=== PATIENT | male | born 1945 | race Caucasian/White ===

== ENCOUNTER → 2018-04-23 07:02 | Outpatient (CLI) | payer OTHER, SELFPAY ==
[2018-04-23 09:51] LABS: Alanine Aminotransferase 29 IU/L (21-72); Albumin 4.2 g/dL (3.5-5.0); Albumin Globulin Ratio 1.4 (1.0-2.8); Alkaline Phosphatase 80 U/L (38-126); Aspartate Aminotransferase 20 IU/L (17-59); BUN Creatinine Ratio 18.9 (6-22); Bilirubin Total 1.1 mg/dL (0.2-1.3); Blood Urea Nitrogen 17 mg/dL (9-20); Calcium 9.3 mg/dL (8.4-10.2); Carbon Dioxide 26 mmol/L (22-32); Chloride 104 mmol/L (98-107); Cholesterol 125 mg/dL (140-199); Estimated Glomerular Filt Rate > 60.0 mL/min (>60); Globulin 2.9 g/dL (1.7-4.1); Glucose 95 mg/dL (80-110); HDL Cholesterol 40 mg/dL (40-60); HEMOLYSIS < 15 (0-50); LDL Cholesterol Calculated 59 mg/dL (<100); Sodium 139 mmol/L (137-145); Total Protein 7.1 g/dL (6.3-8.2); Triglycerides 128 mg/dL (35-150)
== END ==
PROVIDERS: Family Provider Family Medicine; PCP Family Medicine; Visit Provider Family Medicine
DX: E78.5 Hyperlipidemia, unspecified (principal); Z51.81 Encounter for therapeutic drug level monitoring
CPT/HCPCS: 36415; 80053; 80061

== ENCOUNTER → 2018-06-09 13:40 | Outpatient (CLI) | payer OTHER, SELFPAY ==
--- NOTE | 2018-06-09 13:43 | DI.RAD.S_ITS ---
PROCEDURE: XR KNEE RT 3V INDICATIONS: Rihght knee pain TECHNIQUE: 3 views of the knee were acquired. COMPARISON: None. FINDINGS: Bones: No fractures or dislocations. No suspicious bony lesions. Mild joint space narrowing of the medial femorotibial compartment. Soft tissues: No joint effusion. No suspicious soft tissue calcifications. There is a small linear foreign body projecting to the lateral aspect of the knee. IMPRESSION: 1. Mild oste arthritis. 2. A small linear foreign body in the lateral aspect of the knee joint. ? suture. Dictated by: Shelton Dye M.D. on 06/09/2018 at 17:35 Approved by: Shelton Dye M.D. on 06/09/2018 at 17:39
== END ==
PROVIDERS: PCP Family Medicine; Visit Provider Family Medicine
DX: M25.561 Pain in right knee (principal); M17.11 Unilateral primary osteoarthritis, right knee; M79.5 Residual foreign body in soft tissue
CPT/HCPCS: 73562

== ENCOUNTER → 2018-12-23 06:51 | Outpatient (CLI) | payer OTHER, SELFPAY ==
[2018-12-23 08:32] LABS: Alanine Aminotransferase 22 IU/L (21-72); Albumin 4.2 g/dL (3.5-5.0); Albumin Globulin Ratio 1.3 (1.0-2.8); Alkaline Phosphatase 93 U/L (38-126); Aspartate Aminotransferase 24 IU/L (17-59); BUN Creatinine Ratio 21.1 (6-22); Bilirubin Total 1.3 mg/dL (0.2-1.3); Blood Urea Nitrogen 19 mg/dL (9-20); Calcium 9.6 mg/dL (8.4-10.2); Carbon Dioxide 27 mmol/L (22-32); Chloride 104 mmol/L (98-107); Cholesterol 132 mg/dL (140-199); Estimated Glomerular Filt Rate > 60.0 mL/min (>60); Globulin 3.2 g/dL (1.7-4.1); Glucose 99 mg/dL (80-110); HDL Cholesterol 42 mg/dL (40-60); HEMOLYSIS < 15 (0-50); LDL Cholesterol Calculated 69 mg/dL (<100); Potassium 3.9 mmol/L (3.4-5.1); Sodium 139 mmol/L (137-145); Total Protein 7.4 g/dL (6.3-8.2); Triglycerides 107 mg/dL (35-150)
== END ==
PROVIDERS: PCP Family Medicine; Visit Provider Family Medicine
DX: E78.5 Hyperlipidemia, unspecified (principal); I10 Essential (primary) hypertension
CPT/HCPCS: 36415; 80053; 80061

== ENCOUNTER → 2019-02-03 06:48 | Outpatient (CLI) | payer OTHER, SELFPAY ==
[2019-02-03 08:37] LABS: Prostate Specific Antigen 0.283 ng/mL (0.10-4.00)
== END ==
PROVIDERS: Nurse Practitioner Family; PCP Family Medicine; Visit Provider Family Medicine
DX: Z85.46 Personal history of malignant neoplasm of prostate (principal)
CPT/HCPCS: 36415; 84153

== ENCOUNTER → 2019-03-11 07:29 | Outpatient (CLI) | payer OTHER, SELFPAY ==
--- NOTE | 2019-03-11 | DI.RAD.S_ITS ---
PROCEDURE: FL BARIUM SWALLOW INDICATIONS: Other dysphagia COMPARISON: None. FINDINGS: Function: There is markedly decreased esophageal peristalsis. Spontaneous gastroesophageal reflux was seen to the level of the lower third of the esophagus. Morphology: Air-contrast images demonstrate presumed diffuse reflux esophagitis, with occasional feline appearance Single contrast views show no esophageal strictures, extrinsic mass effects, or diverticula. There is a moderate-large hiatal hernia IMPRESSION: Moderate-large hiatal hernia Severe esophageal dysmotility Spontaneous gastroesophageal reflux Dictated by: Armand Awan M.D. on 03/11/2019 at 11:01 Approved by: Armand Awan M.D. on 03/11/2019 at 11:04
== END ==
PROVIDERS: PCP Family Medicine; Visit Provider Otolaryngology
DX: R13.19 Other dysphagia (principal); K44.9 Diaphragmatic hernia without obstruction or gangrene; K22.4 Dyskinesia of esophagus; K21.9 Gastro-esophageal reflux disease without esophagitis
CPT/HCPCS: 74220

== ENCOUNTER 2019-05-02 08:57 | Day surgery (SDC) | payer OTHER, SELFPAY ==
--- NOTE | 2019-05-02 | PATH_ITS ---
[facility] Accession Number: [id number] . 01 Material submitted: . PART A: esophagus, E-G Junction - GE JUNCTION BIOPSIES PART B: body - POLYP AT 80 CM . 02 Diagnosis: A. Gastroesophageal Junction, Biopsies: Squamous epithelium with no diagnostic abnormality. No glandular mucosa present for evaluation. Negative for dysplasia or malignancy. . B. Colon at 80 cm, Polyp: Tubular adenoma. MRV 05/03/2019 1241 Local . 02 Electronically signed: . Geoff Adams MD, PhD, Pathologist NPI- [id number] . 01 Gross description: . Part A: GE JUNCTION BIOPSIES: Received in formalin are 3 fragment(s) of peña, soft tissue measuring 0.1 x 0.1 x 0.1 cm to 0.3 x 0.2 x 0.2 cm submitted entirely in 1 cassette(s) Part B: POLYP AT 80 CM: Received in formalin are multiple fragment(s) of peña, soft tissue measuring 0.1 x 0.1 x 0.1 cm to 0.5 x 0.5 x 0.4 cm submitted entirely in 1 cassette(s) /[facility] 05/02/20192006 Local . 02 Pathologist provided ICD-10: K21.9, D12.6 . 02 CPT . 074692, [id number] Performed at: 01 [facility] [address], [place], [place] [id number] MD Satnam Maldonado MD Phone: [phone] Performed at: 02 [facility] [address] [place], [place] [id number] MD Jackelyn Ramirez MD Phone: [phone]
[2019-05-02] MEDS: SODIUM CHLORIDE 0.9% 1,000 ML 200 ML IV (09:12)
[2019-05-02 09:16] VITALS: BP 154/88; PULSE 67; RESP 16; TEMP 36.4; O2SAT 96; BMI 25.5
[2019-05-02 09:25] VITALS: BMI 25.5
--- NOTE | 2019-05-02 10:01 | PM.HP.1 ---
History of Present Illness History of Present Illness Date Patient Seen: 05/02/19 Time Patient Seen: 10:01 Chief complaint: [id number] Narrative: Patient presents for colorectal screening. They had a previous endoscopy 10 years ago which was normal. In addition to their colorectal screening they have a history of longstanding gastroesophageal reflux and recently became developed dysphagia with solid food products including bread and pasta. Feels as if the food is getting stuck in the midesophagus. No prior EGD No personal or family history of colon cancer. On further history denies any recent gastrointestinal symptoms. No nausea, vomiting, abdominal pain, loss of appetite, unexplained weight loss, change in bowel habits, diarrhea, constipation, melena, hematochezia, or bright red blood per rectum. 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) Mixed hyperlipidemia (Chronic 10/30/15) Surgical History History of tonsillectomy Status post hernia repair Family & Social History Family History Father Bladder cancer Skin cancer Social History: household members spouse Tobacco & Substance use: Smoking Status Never smoker alcohol intake never Meds Home Medications and Allergies Home Medications Medication Instructions Recorded Confirmed Type atorvastatin 20 mg tablet 20 mg PO HS #30 tab 01/14/19 05/02/19 Rx clopidogrel 75 mg tablet 75 mg PO DAILY #30 tab 01/14/19 05/02/19 Rx pantoprazole 40 mg tablet,delayed 40 mg PO QDAY #30 tab 01/14/19 05/02/19 Rx release tamsulosin 0.4 mg capsule 0.4 mg PO DAILY #30 cap 01/14/19 05/02/19 Rx lisinopril 10 mg tablet 10 mg PO DAILY #30 tab 04/29/19 05/02/19 Rx Allergies Allergy/AdvReac Type Severity Reaction Status Date / Time codeine [CODEINE] AdvReac Mild stomach Verified 05/02/19 09:01 pain Review of Systems Review of Systems Narrative: A 10 point review of systems is negative except as noted in the HPI Exam Vital Signs (past 8 hours): - 05/02/19 09:16 Temperature 97.5 F L Pulse Rate 67 Respiratory Rate 16 Blood Pressure 154/88 H Pulse Oximetry 96 Oxygen Delivery Method Room Air Narrative Exam Narrative: General-no acute distress, well nourished HEENT-moist mucous membranes, no scleral icterus Neck-supple, no lymphadenopathy Chest- non labored respirations, clear to auscultation bilaterally Cardiac-regular rate no peripheral edema Abdomen-soft, nontender, non distended Extremities-warm, well perfused Neurological-alert and oriented, no focal deficits Assessment & Plan Assessment and plan (1) Screening for colon cancer: Current visit: Yes Status: Acute Assessment & Plan narrative: The patient has longstanding gastroesophageal reflux and recent onset of dysphagia with solid food. Esophagoduodenoscopy is indicated with possible dilation. In addition The patient requires colorectal screening and colonoscopy is recommended. Technical details were discussed. Risks, benefits, alternatives explained. Risks including but not limited to myocardial infarction, aspiration, bleeding, pain, missed lesion, incomplete examination, need for further radiographic studies, colonic perforation, and need for major abdominal surgery were discussed. All questions were answered to their satisfaction, and they are in agreement with this plan.
--- NOTE | 2019-05-02 10:45 | PM.OP.ENDO ---
Operative Date/Time/Diagnoses Date of procedure: 05/02/19 Time of procedure: 10:45 Pre-op diagnosis: dysphagia Screening colonoscopy Post-op diagnosis: same Procedure & Clinicians Study performed: Esophagoduodenoscopy Colonoscopy Same procedure as scheduled: Yes Indications: Longstanding reflux new onset dysphagia last colonoscopy 10 years ago Surgeon: Raleigh Finley Procedure Notes SCOAP/Timeout: Performed Procedure in detail: Patient placed in left lateral decubitus position. Time out was performed. Procedural sedation was administered with Versed and Fentanyl. A bite block was placed. the scope was inserted into the mouth and advanced through the esophagus and into the stomach. The pylorus was intubated and the duodenum was normal. The scope was retroflexed within the stomach and there was a hiatal hernia. No ulcers, or gastritis. The scope was withdrawn into the esophagus the Z line was seen at 35 cm from the incisions. There was no campuzano's MILD esophagitis no masses or strictures. 4 random biopsies of the Z line were taken with forceps 35 cm. Stomach was desufflated and scope removed. Patient tolerated procedure well. Patient placed in left lateral decubitus position. Time out was performed. Procedural sedation was administered with Versed and Fentanyl. A rectal exam demonstrated no external hemorrhoids no internal masses. Colonoscopy scope was placed into the rectum and advanced through the colon to the cecum. The ileocecal valve was identified. The scope was then slowly withdrawn examining colon thoroughly in all directions. The colonoscopy was notable for the following 1. Transverse colon Adenomatous appearing polyp less than 1 cm removed with forceps biopsy hemostatic cauterized 2. Pain diverticulosis 3. Quality of prep fair Scope withdrawal time: 15 Sedation minutes: 40 Findings: hiatal hernia, polyp and other findings (Esophagitis) Specimen(s): other Complications: none Impression: Esophagitis Hiatal hernia Adenomatous polyp Post-procedure Recommendations: Colonscopy in 5 years Disposition: same day surgery
[2019-05-02 10:48] VITALS: BP 147/86; PULSE 68; RESP 14; TEMP 36.1; O2SAT 95
[2019-05-02] MEDS: LIDOCAINE 4% SOLN 50 ML 20 ML TOP (10:48)
[2019-05-02] MEDS: fentaNYL 250 MCG/5 ML INJ IV (10:49)
[2019-05-02] MEDS: MIDAZOLAM 5 MG/5 ML VIAL IV (10:49)
[2019-05-02 10:53] VITALS: BP 138/82; PULSE 64; RESP 14; O2SAT 95
[2019-05-02 10:58] VITALS: BP 136/81; PULSE 67; RESP 12; O2SAT 96
[2019-05-02 11:15] VITALS: BP 131/87; PULSE 56; RESP 20; TEMP 36.5; O2SAT 96
== END 2019-05-02 11:47 | disposition home or self-care (01) ==
PROVIDERS: PCP Internal Medicine; Referring Provider Internal Medicine; Visit Provider Surgery
PROC: 0DJD8ZZ Inspection of Lower Intestinal Tract, Via Natural or Artificial Opening Endoscopic (ICD-10-PCS; CPT 45378; principal; 2019-05-02 10:00)
PROC: 0DJ08ZZ Inspection of Upper Intestinal Tract, Via Natural or Artificial Opening Endoscopic (ICD-10-PCS; CPT 43235; 2019-05-02 10:00)
DX: Z12.11 Encounter for screening for malignant neoplasm of colon (principal); R13.10 Dysphagia, unspecified; K44.9 Diaphragmatic hernia without obstruction or gangrene; K57.30 Diverticulosis of large intestine without perforation or abscess without bleeding; D12.6 Benign neoplasm of colon, unspecified
CPT/HCPCS: 45380; 43239; 99152; 99153; J2250; J3010

== ENCOUNTER → 2019-06-06 06:46 | Outpatient (CLI) | payer OTHER, SELFPAY ==
[2019-06-06 07:46] LABS: Alanine Aminotransferase 18 IU/L (<50); Albumin 4.2 g/dL (3.5-5.0); Albumin Globulin Ratio 1.2 (1.0-2.8); Alkaline Phosphatase 89 U/L (38-126); Aspartate Aminotransferase 22 IU/L (17-59); BUN Creatinine Ratio 20.4 (6-22); Bilirubin Total 0.9 mg/dL (0.2-1.3); Blood Urea Nitrogen 21 mg/dL (9-20); Calcium 9.5 mg/dL (8.4-10.2); Carbon Dioxide 29 mmol/L (22-32); Chloride 104 mmol/L (98-107); Cholesterol 145 mg/dL (140-199); Estimated Glomerular Filt Rate > 60.0 mL/min (>60); Globulin 3.4 g/dL (1.7-4.1); Glucose 108 mg/dL (80-110); HDL Cholesterol 42 mg/dL (40-60); HEMOLYSIS < 15 (0-50); LDL Cholesterol Calculated 71 mg/dL (<100); Potassium 4.1 mmol/L (3.4-5.1); Sodium 140 mmol/L (137-145); Total Protein 7.6 g/dL (6.3-8.2); Triglycerides 158 mg/dL (35-150)
[2019-06-06 08:15] LABS: Prostate Specific Antigen 0.603 ng/mL (0.10-4.00)
== END ==
PROVIDERS: PCP Internal Medicine; Referring Provider Internal Medicine; Visit Provider Internal Medicine
DX: E78.2 Mixed hyperlipidemia (principal); I10 Essential (primary) hypertension; I25.10 Atherosclerotic heart disease of native coronary artery without angina pectoris; Z85.46 Personal history of malignant neoplasm of prostate
CPT/HCPCS: 36415; 80053; 80061; 84153

== ENCOUNTER → 2019-12-27 06:56 | Outpatient (CLI) | payer OTHER, SELFPAY ==
[2019-12-27 09:20] LABS: Alanine Aminotransferase 20 IU/L (<50); Albumin Globulin Ratio 1.4 (1.0-2.8); Alkaline Phosphatase 81 U/L (38-126); Aspartate Aminotransferase 26 IU/L (17-59); BUN Creatinine Ratio 26.3 (6-22); Bilirubin Total 0.7 mg/dL (0.2-1.3); Blood Urea Nitrogen 25 mg/dL (9-20); Calcium 9.4 mg/dL (8.4-10.2); Carbon Dioxide 31 mmol/L (22-32); Chloride 104 mmol/L (98-107); Cholesterol 130 mg/dL (140-199); Estimated Glomerular Filt Rate > 60.0 mL/min (>60); Globulin 2.9 g/dL (1.7-4.1); Glucose 99 mg/dL (80-110); HDL Cholesterol 44 mg/dL (40-60); HEMOLYSIS < 15 (0-50); LDL Cholesterol Calculated 69 mg/dL (<100); Potassium 4.3 mmol/L (3.4-5.1); Sodium 141 mmol/L (137-145); Total Protein 6.9 g/dL (6.3-8.2); Triglycerides 86 mg/dL (35-150)
[2019-12-27 09:51] LABS: Prostate Specific Antigen 2.37 ng/mL (0.10-4.00)
== END ==
PROVIDERS: PCP Internal Medicine; Referring Provider Internal Medicine; Visit Provider Internal Medicine
DX: E78.2 Mixed hyperlipidemia (principal); I10 Essential (primary) hypertension; I25.10 Atherosclerotic heart disease of native coronary artery without angina pectoris; Z85.46 Personal history of malignant neoplasm of prostate
CPT/HCPCS: 36415; 80053; 80061; 84153

== ENCOUNTER → 2020-03-28 07:01 | Outpatient (CLI) | payer OTHER, SELFPAY ==
[2020-03-28 09:14] LABS: Prostate Specific Antigen 4.57 ng/mL (0.10-4.00)
== END ==
PROVIDERS: PCP Internal Medicine; Referring Provider Internal Medicine; Visit Provider Internal Medicine
DX: Z85.46 Personal history of malignant neoplasm of prostate (principal)
CPT/HCPCS: 36415; 84153

== ENCOUNTER → 2020-04-02 10:52 | Outpatient (CLI) | payer OTHER, SELFPAY ==
--- NOTE | 2020-04-02 10:53 | DI.RAD.S_ITS ---
PROCEDURE: XR SHOULDER LT MIN 2V INDICATIONS: left shoulder pain TECHNIQUE: 3 views of the shoulder were acquired. COMPARISON: [facility], SHOULDER MINIMUM 2 VIEW LEFT, 02/22/2010, 7:51. [facility], SHOULDER MINIMUM 2VIEW RIGHT, 07/06/2007, 16:12. FINDINGS: Bones: No fractures or dislocations. No suspicious bony lesions. Visualized ribs appear intact. Soft tissues: No suspicious soft tissue calcifications. IMPRESSION: [id number] AC joint osteoarthritis but no recent or chronic trauma found. No loose body identified. Dictated by: Bakari Tamez M.D. on 04/02/2020 at 11:59 Approved by: Bakari Tamez M.D. on 04/02/2020 at 12:00
== END ==
PROVIDERS: PCP Internal Medicine; Referring Provider Internal Medicine; Visit Provider Internal Medicine
DX: M25.512 Pain in left shoulder (principal); M19.012 Primary osteoarthritis, left shoulder
CPT/HCPCS: 73030

== ENCOUNTER → 2020-06-12 06:47 | Outpatient (CLI) | payer OTHER, SELFPAY ==
[2020-06-12 09:11] LABS: BUN Creatinine Ratio 18.6 (6-22); Blood Urea Nitrogen 18 mg/dL (9-20); Calcium 9.6 mg/dL (8.4-10.2); Carbon Dioxide 28 mmol/L (22-32); Chloride 104 mmol/L (98-107); Estimated Glomerular Filt Rate > 60.0 mL/min (>60); Glucose 101 mg/dL (80-110); HEMOLYSIS < 15 (0-50); Potassium 4.6 mmol/L (3.4-5.1); Sodium 138 mmol/L (137-145)
[2020-06-12 09:34] LABS: Prostate Specific Antigen 7.24 ng/mL (0.10-4.00)
== END ==
PROVIDERS: PCP Internal Medicine; Referring Provider Specialist; Visit Provider Specialist
DX: R94.4 Abnormal results of kidney function studies (principal); R97.20 Elevated prostate specific antigen [PSA]
CPT/HCPCS: 36415; 80048; 84153

== ENCOUNTER → 2020-06-14 10:41 | Outpatient (CLI) | payer OTHER, SELFPAY ==
--- NOTE | 2020-06-14 10:42 | DI.NM.S_ITS ---
PROCEDURE: NM BONE SCAN WHOLE BODY RADIOPHARMACEUTICAL: 19.5 mCi Tc-99m MDP IV. INDICATIONS: Prostate cancer TECHNIQUE: Delayed whole-body scintigrams were obtained approximately 3-4 hours after intravenous injection of radiotracer. Anterior and posterior views were acquired from vertex to feet. Additional left and right oblique views of the pelvis were obtained. COMPARISON: [facility], CT, CT CHEST ABD PEL W CON, 06/14/2020, 11:35. FINDINGS: There is physiologic tracer activity seen within the kidneys and bladder. Bilateral knee periarticular uptake as well as at the left great toe is probably degenerative/arthritic in nature. There is also L5-S1 tracer activity which is probably discogenic given the CT appearance. No definite tracer activity corresponding to the sclerotic lesion seen on the comparison CT dated same day although recommend continued surveillance of this area on subsequent studies. Cervical tracer activity is likely discogenic. IMPRESSION: Overall, no suspicious tracer activity identified including in the area of the anterior right 4th rib. Dictated by: Armand Awan M.D. on 06/14/2020 at 15:40 Approved by: Armand Awan M.D. on 06/14/2020 at 15:46
--- NOTE | 2020-06-14 10:42 | DI.CT.S_ITS ---
PROCEDURE: CT CHEST ABD PEL W CON INDICATIONS: Rising PSA, Personal history of prostate cancer TECHNIQUE: After the administration of oral and intravenous contrast, 5 mm thick sections acquired from the lung apices to the symphysis. 5 mm coronal and sagittal reformats were performed, with additional 7 mm coronal MIP reformats through the lungs. For radiation dose reduction, the following was used: automated exposure control, adjustment of mA and/or kV according to patient size. COMPARISON: [facility], CT, PELVIS W/O CONTRAST, 06/06/2013, 11:21. FINDINGS: Image quality: Excellent. CHEST: Scattered subsegmental atelectasis and/or scarring. No focal consolidation. No pleural effusions or pneumothorax. Central and peripheral airways appear patent and normal in caliber. Subcentimeter right anterior pleural calcification, technically nonspecific although recommend attention to this area on pending Mediastinum: Heart size is normal. No pericardial effusion. No mediastinal or hilar adenopathy by size criteria. Thoracic aorta and central pulmonary arteries are normal in size. Esophagus is normal in caliber. Large hiatal hernia Chest wall: No axillary or supraclavicular adenopathy by size criteria. Thyroid is grossly unremarkable ABDOMEN: Solid organs: Liver is normal in size and enhancement. GallbladderThe gallbladder is grossly unremarkable.. Biliary system is non dilated. Pancreas enhances normally. Spleen is normal in size and enhancement. No adrenal nodules. Kidneys demonstrate normal size and enhancement, without hydronephrosis. Peritoneum and bowel: Bowel loops demonstrate normal wall thickness and caliber. No free fluid or air. Colonic diverticulosis is seen without evidence of acute complication. Nodes and vessels: No retroperitoneal or mesenteric adenopathy by size criteria. Aorta and inferior vena cava are normal in size. Miscellaneous: No ventral hernias. PELVIS: Genitourinary: Bladder wall thickness is normal. Prostate brachytherapy seeds noted. There is interval development of enlarged left external iliac, retroperitoneal lymph nodes, for example image 100/2 left external iliac lymph node measures 1.3 x 1.3 cm. On image 92/2, 2.8 x 1.8 cm left common iliac lymph node. There are additional shotty subcentimeter retroperitoneal lymph nodes without definite pathologic enlargement, although these appear more conspicuous since the prior study. Fat containing left inguinal hernia. Bones: No suspicious bony lesions. No vertebral body compression fractures. IMPRESSION: Interval development of left common iliac, and left external iliac enlarged lymph nodes suggesting metastatic involvement. Additional shotty retroperitoneal lymph nodes which warrant continued observation, given suspicion of early disease. Nonspecific subcentimeter sclerotic focus involving the anterior right 4th rib/pleura, raising the possibility of osseous metastasis. Recommend correlation to this area on pending bone scan. Large hiatal hernia Additional chronic and incidental findings as above. Dictated by: Armand Awan M.D. on 06/14/2020 at 14:58 Approved by: Armand Awan M.D. on 06/14/2020 at 15:13
== END ==
PROVIDERS: PCP Internal Medicine; Referring Provider Internal Medicine; Visit Provider Specialist
DX: C61 Malignant neoplasm of prostate (principal); R97.20 Elevated prostate specific antigen [PSA]; R59.0 Localized enlarged lymph nodes; K44.9 Diaphragmatic hernia without obstruction or gangrene
CPT/HCPCS: 71260; 74177; 78306; A9503; Q9967

== ENCOUNTER → 2020-11-14 06:54 | Outpatient (CLI) | payer OTHER, SELFPAY ==
[2020-11-14 08:55] LABS: Prostate Specific Antigen 0.177 ng/mL (0.10-4.00)
== END ==
PROVIDERS: PCP Internal Medicine; Referring Provider Specialist; Visit Provider Specialist
DX: N40.0 Benign prostatic hyperplasia without lower urinary tract symptoms (principal)
CPT/HCPCS: 36415; 84153

== ENCOUNTER → 2021-04-30 06:49 | Outpatient (CLI) | payer OTHER, SELFPAY ==
[2021-04-30 09:08] LABS: Prostate Specific Antigen < 0.064 ng/mL (0.10-4.00)
== END ==
PROVIDERS: PCP Internal Medicine; Referring Provider Specialist; Visit Provider Specialist
DX: C61 Malignant neoplasm of prostate (principal)
CPT/HCPCS: 36415; 84153

== ENCOUNTER → 2021-05-01 14:01 | Outpatient (CLI) | payer OTHER, SELFPAY | PROVIDERS: PCP Internal Medicine; Referring Provider Specialist; Visit Provider Specialist | DX: C79.9 Secondary malignant neoplasm of unspecified site; C61 Malignant neoplasm of prostate; M85.851 Other specified disorders of bone density and structure, right thigh; M19.90 Unspecified osteoarthritis, unspecified site; Z79.899 Other long term (current) drug therapy; Z79.818 Long term (current) use of other agents affecting estrogen receptors and estrogen levels | CPT/HCPCS: 77080 ==

== ENCOUNTER → 2021-07-01 06:52 | Outpatient (CLI) | payer OTHER, SELFPAY ==
[2021-07-01 08:53] LABS: Alanine Aminotransferase 16 IU/L (<50); Albumin Globulin Ratio 1.4 (1.0-2.8); Alkaline Phosphatase 57 U/L (38-126); Aspartate Aminotransferase 22 IU/L (17-59); BUN Creatinine Ratio 19.6 (6-22); Bilirubin Total 0.7 mg/dL (0.2-1.3); Blood Urea Nitrogen 18 mg/dL (9-20); Calcium 8.8 mg/dL (8.4-10.2); Carbon Dioxide 27 mmol/L (22-32); Chloride 107 mmol/L (98-107); Cholesterol 160 mg/dL (140-199); Estimated Glomerular Filt Rate > 60.0 mL/min (>60); Globulin 2.8 g/dL (1.7-4.1); Glucose 107 mg/dL (80-110); HDL Cholesterol 52 mg/dL (40-60); HEMOLYSIS < 15 (0-50); LDL Cholesterol Calculated 67 mg/dL (<100); Sodium 141 mmol/L (137-145); Total Protein 6.8 g/dL (6.3-8.2); Triglycerides 203 mg/dL (35-150)
== END ==
PROVIDERS: PCP Internal Medicine; Referring Provider Internal Medicine; Visit Provider Internal Medicine
DX: I10 Essential (primary) hypertension (principal); E78.2 Mixed hyperlipidemia
CPT/HCPCS: 36415; 80053; 80061

== ENCOUNTER → 2021-10-30 06:52 | Outpatient (CLI) | payer OTHER, SELFPAY ==
[2021-10-30 08:00] LABS: BUN Creatinine Ratio 25.5 (6-22); Blood Urea Nitrogen 24 mg/dL (9-20); Calcium 9.1 mg/dL (8.4-10.2); Carbon Dioxide 30 mmol/L (22-32); Chloride 106 mmol/L (98-107); Estimated Glomerular Filt Rate > 60 mL/min (>60); Glucose 107 mg/dL (80-110); HEMOLYSIS < 15 (0-50); Potassium 4.3 mmol/L (3.4-5.1); Sodium 141 mmol/L (137-145)
[2021-10-30 08:30] LABS: Prostate Specific Antigen < 0.064 ng/mL (0.10-4.00)
== END ==
PROVIDERS: PCP Internal Medicine; Referring Provider Specialist; Visit Provider Specialist
DX: C61 Malignant neoplasm of prostate (principal); R97.20 Elevated prostate specific antigen [PSA]; Z85.46 Personal history of malignant neoplasm of prostate
CPT/HCPCS: 36415; 80048; 84153

== ENCOUNTER → 2021-11-01 09:05 | Outpatient (CLI) | payer OTHER, SELFPAY ==
--- NOTE | 2021-11-01 09:06 | DI.CT.S_ITS ---
PROCEDURE: CT ABDOMEN PELVIS W CON INDICATIONS: Prostate CA TECHNIQUE: After the administration of oral and intravenous contrast, axial sections were acquired from the lung bases to the pubic symphysis. Coronal and sagittal reformats were performed. For radiation dose reduction, the following was used: automated exposure control, adjustment of mA and/or kV according to patient size. COMPARISON:[facility], CT, CT CHEST ABD PEL W CON, 06/14/2020, 11:35. FINDINGS: Image quality: Excellent. Lung bases: Unremarkable. There is a large hiatal hernia. Heart: No significant findings. ABDOMEN: Liver: Unremarkable. Gallbladder: Unremarkable. Biliary ducts: Unremarkable. Pancreas: Unremarkable. Spleen: Unremarkable. Adrenal Glands: Unremarkable. Kidneys and Ureters: Unremarkable. Stomach and Bowel: Stomach, small bowel loops, and colon are unremarkable. The appendix is thin walled and gas filled. There are extensive sigmoid diverticula. No evidence for diverticulitis. Peritoneum: No abnormal intraperitoneal fluid. No free air. Ventral Wall: No hernia. Abdominal Nodes: No retroperitoneal or mesenteric adenopathy by size criteria. Vessels: Aorta and inferior vena cava are normal in size. There are scattered atheromatous calcifications throughout the aorta and iliac arteries bilaterally. PELVIS: Pelvic Organs: Unremarkable. Bladder: Unremarkable. Pelvic Nodes: No enlarged lymph nodes. Miscellaneous: There is a large fat containing left inguinal hernia. Bones: Unremarkable. IMPRESSION: 1. No findings to suggest tumor recurrence or new metastasis. The previously visualized enlarged retroperitoneal lymph nodes on the comparison CT from June 14, 2020 are now normal in size. 2. No acute intra-abdominal findings. Diverticulosis. No acute diverticulitis. Normal appendix. Dictated by: Carin Lin M.D. on 11/01/2021 at 12:16 Approved by: Carin Lin M.D. on 11/01/2021 at 12:21
== END ==
PROVIDERS: PCP Internal Medicine; Referring Provider Specialist; Visit Provider Specialist
DX: C61 Malignant neoplasm of prostate (principal); K44.9 Diaphragmatic hernia without obstruction or gangrene; K57.30 Diverticulosis of large intestine without perforation or abscess without bleeding
CPT/HCPCS: 74177; Q9967

== ENCOUNTER → 2022-05-02 06:59 | Outpatient (CLI) | payer OTHER, SELFPAY ==
[2022-05-02 08:30] LABS: Prostate Specific Antigen 0.647 ng/mL (0.10-4.00)
== END ==
PROVIDERS: PCP Internal Medicine; Referring Provider Specialist; Visit Provider Specialist
DX: C61 Malignant neoplasm of prostate (principal)
CPT/HCPCS: 36415; 84153

== ENCOUNTER → 2022-08-02 07:46 | Outpatient (CLI) | payer OTHER, SELFPAY ==
[2022-08-02 09:13] LABS: Add Manual Diff / Slide Review NO; Basophils Absolute Auto 0 /uL (0-100); Basophils Percent Auto 0.7 % (0-2); Eosinophils Absolute Auto 100 /uL (0-450); Eosinophils Percent Auto 2.5 % (2-4); Hemoglobin 14.2 g/dL (13.5-17.5); Lymphocytes Absolute Auto 1400 /uL (1100-4500); Lymphocytes Percent Auto 31.2 % (25-40); Mean Corpuscular HGB Conc 33.9 % (30-36); Mean Corpuscular Hemoglobin 31.3 PG (26-34); Mean Corpuscular Volume 92.2 fL (80-100); Monocytes Absolute Auto 400 /uL (0-900); Monocytes Percent Auto 8.3 % (3-14); Neutrophils Absolute Auto 2500 /uL (1500-7000); Neutrophils Percent Auto 57.3 % (50-75); Platelet Count 200 X10^3/uL (150-400); Red Blood Cell Count 4.55 X10^6/uL (4.5-5.9); Red Cell Distribution Width 14.1 % (11.6-14.8); White Blood Cell Count 4.4 X10^3/uL (4.5-11.0)
[2022-08-02 09:51] LABS: Alanine Aminotransferase 26 IU/L (<50); Albumin 3.8 g/dL (3.5-5.0); Albumin Globulin Ratio 1.4 (1.0-2.8); Alkaline Phosphatase 49 U/L (38-126); Aspartate Aminotransferase 29 IU/L (17-59); BUN Creatinine Ratio 20.4 (6-22); Bilirubin Total 1.1 mg/dL (0.2-1.3); Blood Urea Nitrogen 19 mg/dL (9-20); Calcium 9.1 mg/dL (8.4-10.2); Carbon Dioxide 30 mmol/L (22-32); Chloride 103 mmol/L (98-107); Cholesterol 157 mg/dL (140-199); Estimated Glomerular Filt Rate > 60 mL/min (>60); Globulin 2.7 g/dL (1.7-4.1); Glucose 105 mg/dL (80-110); HDL Cholesterol 53 mg/dL (40-60); HEMOLYSIS < 15 (0-50); LDL Cholesterol Calculated 84 mg/dL (<100); Potassium 4.1 mmol/L (3.4-5.1); Sodium 138 mmol/L (137-145); Total Protein 6.5 g/dL (6.3-8.2); Triglycerides 100 mg/dL (35-150)
== END ==
PROVIDERS: PCP Internal Medicine; Referring Provider Internal Medicine; Visit Provider Internal Medicine
DX: E78.2 Mixed hyperlipidemia (principal); I10 Essential (primary) hypertension; I25.10 Atherosclerotic heart disease of native coronary artery without angina pectoris; Z79.899 Other long term (current) drug therapy
CPT/HCPCS: 36415; 80053; 80061; 85025

== ENCOUNTER → 2022-10-23 06:36 | Outpatient (CLI) | payer OTHER, SELFPAY | PROVIDERS: PCP Internal Medicine; Referring Provider Specialist; Visit Provider Specialist | DX: C61 Malignant neoplasm of prostate (principal) | CPT/HCPCS: 36415; 84153 ==

== ENCOUNTER → 2022-11-05 14:24 | Outpatient (CLI) | payer OTHER, SELFPAY ==
[2022-11-05 16:49] LABS: Prostate Specific Antigen 4.18 ng/mL (0.10-4.00)
== END ==
PROVIDERS: PCP Internal Medicine; Referring Provider Specialist; Visit Provider Specialist
DX: C61 Malignant neoplasm of prostate (principal)
CPT/HCPCS: 36415; 51798; 84153; 96372; 96402; 99215; J0897; J9217

== ENCOUNTER → 2023-02-18 09:21 | Outpatient (CLI) | payer OTHER, SELFPAY ==
[2023-02-18 11:38] LABS: Prostate Specific Antigen 9.26 ng/mL (0.10-4.00)
== END ==
PROVIDERS: PCP Internal Medicine; Referring Provider Specialist; Visit Provider Specialist
DX: C61 Malignant neoplasm of prostate (principal); C77.5 Secondary and unspecified malignant neoplasm of intrapelvic lymph nodes
CPT/HCPCS: 36415; 84153; 99215

== ENCOUNTER → 2023-03-25 11:01 | Outpatient (CLI) | payer OTHER, SELFPAY | PROVIDERS: PCP Internal Medicine; Referring Provider Surgery; Visit Provider Surgery | DX: Z01.818 Encounter for other preprocedural examination (principal) | CPT/HCPCS: 93005 ==

== ENCOUNTER → 2024-04-04 09:23 | Outpatient (CLI) | payer OTHER, SELFPAY ==
[2024-04-04 10:05] LABS: Add Manual Diff / Slide Review NO; Basophils Absolute Auto 0 /uL (0-100); Basophils Percent Auto 0.7 % (0-2); Eosinophils Absolute Auto 100 /uL (0-450); Hematocrit 41.7 % (41-53); Hemoglobin 13.9 g/dL (13.5-17.5); Lymphocytes Absolute Auto 1000 /uL (1100-4500); Lymphocytes Percent Auto 20.6 % (25-40); Mean Corpuscular HGB Conc 33.5 % (30-36); Mean Corpuscular Hemoglobin 31.3 PG (26-34); Mean Corpuscular Volume 93.6 fL (80-100); Monocytes Absolute Auto 400 /uL (0-900); Monocytes Percent Auto 7.6 % (3-14); Neutrophils Absolute Auto 3500 /uL (1500-7000); Neutrophils Percent Auto 69.1 % (50-75); Platelet Count 234 X10^3/uL (150-400); Red Blood Cell Count 4.45 X10^6/uL (4.5-5.9); Red Cell Distribution Width 14.1 % (11.6-14.8); White Blood Cell Count 5.1 X10^3/uL (4.5-11.0)
[2024-04-04 10:29] LABS: Alanine Aminotransferase 18 IU/L (<50); Albumin 4.1 g/dL (3.5-5.0); Albumin Globulin Ratio 1.8 (1.0-2.8); Alkaline Phosphatase 112 U/L (38-126); Aspartate Aminotransferase 24 IU/L (17-59); BUN Creatinine Ratio 20.8 (6-22); Bilirubin Total 0.6 mg/dL (0.2-1.3); Blood Urea Nitrogen 22 mg/dL (9-20); Calcium 9.7 mg/dL (8.4-10.2); Carbon Dioxide 30 mmol/L (22-32); Chloride 105 mmol/L (98-107); Estimated Glomerular Filt Rate > 60 mL/min (>60); Globulin 2.3 g/dL (1.7-4.1); Glucose 104 mg/dL (80-110); HEMOLYSIS < 15 (0-50); Potassium 4.4 mmol/L (3.4-5.1); Sodium 140 mmol/L (137-145); Total Protein 6.4 g/dL (6.3-8.2)
== END ==
PROVIDERS: PCP Internal Medicine; Referring Provider Radiology Radiation Oncology; Visit Provider Radiology Radiation Oncology
DX: C61 Malignant neoplasm of prostate (principal)
CPT/HCPCS: 36415; 80053; 84153; 85025

== ENCOUNTER → 2024-05-18 06:41 | Outpatient (CLI) | payer OTHER, SELFPAY ==
[2024-05-18 07:46] LABS: Add Manual Diff / Slide Review NO; Basophils Absolute Auto 0 /uL (0-100); Basophils Percent Auto 0.8 % (0-2); Eosinophils Absolute Auto 100 /uL (0-450); Eosinophils Percent Auto 3.3 % (2-4); Hematocrit 41.7 % (41-53); Hemoglobin 14.1 g/dL (13.5-17.5); Lymphocytes Absolute Auto 800 /uL (1100-4500); Lymphocytes Percent Auto 19.7 % (25-40); Mean Corpuscular HGB Conc 33.8 % (30-36); Mean Corpuscular Hemoglobin 31.5 PG (26-34); Mean Corpuscular Volume 93.1 fL (80-100); Monocytes Absolute Auto 300 /uL (0-900); Monocytes Percent Auto 7.4 % (3-14); Neutrophils Absolute Auto 2800 /uL (1500-7000); Neutrophils Percent Auto 68.8 % (50-75); Platelet Count 214 X10^3/uL (150-400); Red Blood Cell Count 4.48 X10^6/uL (4.5-5.9); Red Cell Distribution Width 14.8 % (11.6-14.8); White Blood Cell Count 4.1 X10^3/uL (4.5-11.0)
[2024-05-18 08:14] LABS: Alanine Aminotransferase 16 IU/L (<50); Albumin Globulin Ratio 1.7 (1.0-2.8); Alkaline Phosphatase 99 U/L (38-126); Aspartate Aminotransferase 23 IU/L (17-59); BUN Creatinine Ratio 16.7 (6-22); Bilirubin Total 1.2 mg/dL (0.2-1.3); Blood Urea Nitrogen 16 mg/dL (9-20); Carbon Dioxide 28 mmol/L (22-32); Chloride 104 mmol/L (98-107); Estimated Glomerular Filt Rate > 60 mL/min (>60); Globulin 2.4 g/dL (1.7-4.1); Glucose 100 mg/dL (80-110); HEMOLYSIS < 15 (0-50); Potassium 4.1 mmol/L (3.4-5.1); Sodium 139 mmol/L (137-145); Total Protein 6.4 g/dL (6.3-8.2)
== END ==
LOC: LAB 06:43
PROVIDERS: PCP Internal Medicine; Referring Provider Radiology Radiation Oncology; Visit Provider Radiology Radiation Oncology
DX: C61 Malignant neoplasm of prostate (principal)
CPT/HCPCS: 36415; 80053; 84153; 85025

== ENCOUNTER → 2024-06-30 06:45 | Outpatient (CLI) | payer OTHER, SELFPAY ==
[2024-06-30 07:35] LABS: Add Manual Diff / Slide Review NO; Basophils Absolute Auto 0 /uL (0-100); Basophils Percent Auto 0.8 % (0-2); Eosinophils Absolute Auto 100 /uL (0-450); Eosinophils Percent Auto 2.6 % (2-4); Hematocrit 39.6 % (41-53); Hemoglobin 13.6 g/dL (13.5-17.5); Lymphocytes Absolute Auto 1000 /uL (1100-4500); Lymphocytes Percent Auto 23.3 % (25-40); Mean Corpuscular HGB Conc 34.2 % (30-36); Mean Corpuscular Hemoglobin 31.9 PG (26-34); Mean Corpuscular Volume 93.2 fL (80-100); Monocytes Absolute Auto 400 /uL (0-900); Monocytes Percent Auto 10.3 % (3-14); Neutrophils Absolute Auto 2800 /uL (1500-7000); Platelet Count 194 X10^3/uL (150-400); Red Blood Cell Count 4.25 X10^6/uL (4.5-5.9); Red Cell Distribution Width 14.7 % (11.6-14.8); White Blood Cell Count 4.4 X10^3/uL (4.5-11.0)
[2024-06-30 07:59] LABS: Alanine Aminotransferase 15 IU/L (<50); Albumin 3.9 g/dL (3.5-5.0); Albumin Globulin Ratio 1.7 (1.0-2.8); Alkaline Phosphatase 98 U/L (38-126); Aspartate Aminotransferase 21 IU/L (17-59); Blood Urea Nitrogen 16 mg/dL (9-20); Calcium 9.7 mg/dL (8.4-10.2); Carbon Dioxide 25 mmol/L (22-32); Chloride 107 mmol/L (98-107); Estimated Glomerular Filt Rate > 60 mL/min (>60); Globulin 2.3 g/dL (1.7-4.1); Glucose 108 mg/dL (80-110); HEMOLYSIS < 15 (0-50); Sodium 140 mmol/L (137-145); Total Protein 6.2 g/dL (6.3-8.2)
[2024-06-30 08:26] LABS: Prostate Specific Antigen 1.86 ng/mL (0.10-4.00)
== END ==
PROVIDERS: PCP Internal Medicine; Referring Provider Radiology Radiation Oncology; Visit Provider Radiology Radiation Oncology
DX: C61 Malignant neoplasm of prostate (principal)
CPT/HCPCS: 36415; 80053; 84153; 85025

== ENCOUNTER → 2024-08-04 06:54 | Outpatient (CLI) | payer OTHER, SELFPAY ==
[2024-08-04 07:50] LABS: Add Manual Diff / Slide Review NO; Basophils Absolute Auto 0 /uL (0-100); Basophils Percent Auto 0.5 % (0-2); Eosinophils Absolute Auto 100 /uL (0-450); Eosinophils Percent Auto 2.4 % (2-4); Hematocrit 42.5 % (41-53); Hemoglobin 14.4 g/dL (13.5-17.5); Lymphocytes Absolute Auto 800 /uL (1100-4500); Mean Corpuscular Hemoglobin 32.1 PG (26-34); Mean Corpuscular Volume 94.6 fL (80-100); Monocytes Absolute Auto 400 /uL (0-900); Monocytes Percent Auto 8.5 % (3-14); Neutrophils Absolute Auto 3000 /uL (1500-7000); Neutrophils Percent Auto 69.6 % (50-75); Platelet Count 203 X10^3/uL (150-400); Red Blood Cell Count 4.49 X10^6/uL (4.5-5.9); Red Cell Distribution Width 14.9 % (11.6-14.8); White Blood Cell Count 4.3 X10^3/uL (4.5-11.0)
[2024-08-04 07:58] LABS: Alanine Aminotransferase 14 IU/L (<50); Albumin 4.2 g/dL (3.5-5.0); Albumin Globulin Ratio 1.7 (1.0-2.8); Alkaline Phosphatase 103 U/L (38-126); Aspartate Aminotransferase 21 IU/L (17-59); BUN Creatinine Ratio 17.5 (6-22); Bilirubin Total 1.1 mg/dL (0.2-1.3); Blood Urea Nitrogen 17 mg/dL (9-20); Calcium 9.9 mg/dL (8.4-10.2); Carbon Dioxide 28 mmol/L (22-32); Chloride 104 mmol/L (98-107); Estimated Glomerular Filt Rate > 60 mL/min (>60); Globulin 2.5 g/dL (1.7-4.1); Glucose 107 mg/dL (70-99); HEMOLYSIS < 15 (0-50); Potassium 4.1 mmol/L (3.4-5.1); Sodium 140 mmol/L (137-145); Total Protein 6.7 g/dL (6.3-8.2)
== END ==
LOC: LAB 06:57
PROVIDERS: PCP Internal Medicine; Referring Provider Radiology Radiation Oncology; Visit Provider Radiology Radiation Oncology
DX: C61 Malignant neoplasm of prostate (principal)
CPT/HCPCS: 36415; 80053; 84153; 85025

== ENCOUNTER → 2024-09-01 11:16 | Outpatient (CLI) | payer OTHER, SELFPAY ==
--- NOTE | 2024-09-01 11:18 | DI.CT.S_ITS ---
PROCEDURE: CT SOFT TISSUE NECK W CON INDICATIONS: plucivto metastic prostate cancer TECHNIQUE: After the administration of intravenous contrast, 3.0 mm axial sections acquired from the sella to the aortic arch. Additional oblique axial 3.0 mm sections acquired through the pharynx. 3 mm thick coronal and sagittal reformats were generated. For radiation dose reduction, the following was used: automated exposure control. COMPARISON: [facility], CT, CT SOFT TISSUE NECK WITH CONTRAST, 11/30/2023, 10:56. FINDINGS: Image quality: Excellent. Lymph nodes: No enlarged lymph nodes seen throughout the neck. Vessels: Visualized vasculature appears patent. Neck spaces: The oropharynx, nasopharynx, and pharynx demonstrate no mucosal lesions. The vocal cords, false vocal cords, pyriform sinuses, epiglottis, vallecula, and tongue base all appear normal. Extramucosal spaces appear unremarkable. Glands: The parotid and submandibular glands appear normal. Thyroid gland is unremarkable. Miscellaneous: Visualized brain and orbits appear normal. Lung apices appear clear. Superficial soft tissues appear normal. Bones: No suspicious bony lesions. Visualized sinuses and mastoids appear unremarkable. IMPRESSION: Stable interval exam without visualized adenopathy or metastatic disease. Dictated by: Ashwini Rivera M.D. on 09/03/2024 at 16:02 Approved by: Ashwini Rivera M.D. on 09/03/2024 at 16:05
--- NOTE | 2024-09-01 11:18 | DI.CT.S_ITS ---
PROCEDURE: CT CHEST ABD PEL W CON INDICATIONS: plucivto metastic prostate cancer TECHNIQUE: After the administration of intravenous contrast, 5 mm thick sections acquired from the lung apices to the symphysis. 5 mm coronal and sagittal reformats were performed, with additional 7 mm MIP reformats through the lungs. For radiation dose reduction, the following was used: automated exposure control, adjustment of mA and/or kV according to patient size. COMPARISON: [facility], CT, CT CHEST ABD PEL W CON, 06/14/2020, 11:35. [facility], CT, CT CHEST ABDOMEN PELVIS WITH CONTRAST, 11/30/2023, 10:56. FINDINGS: Image quality: Diagnostic Lungs and pleura: Scattered scarring and atelectasis. No airspace consolidation. No pleural effusion. Small nodules for example in the right 6/72 again seen. Subpleural left nodule 6/109 also again seen Mediastinum, heart, and esophagus: Large hiatal hernia without gastric distention. Stomach appears rotated. Coronary calcifications. Left port catheter tip is in the mid SVC. No enlarged mediastinal or hilar lymph nodes by size criteria. Chest wall and thyroid: Unremarkable. Suspected moderate right glenohumeral effusion due to advanced degenerative changes and bursal edema. Liver: There are many small hypoattenuating liver lesions that are too small to characterize, probably cysts. Gallbladder and biliary system: Unremarkable, nondilated Pancreas: No ductal dilation. Pancreatic calcifications again seen probably from prior inflammation Spleen: Nonenlarged Adrenals: No discrete nodules Kidneys: No solid renal mass. No hydronephrosis. Vessels and lymph nodes: Moderate atherosclerotic calcifications, with areas of noncalcified plaque. No abdominal aortic aneurysm. Main portal vein appears patent. Previous left common iliac and left para-aortic lymph nodes have decreased in size, for example axial image measuring 0.8 cm, previously 1.4 cm. Bowel and peritoneum: No small bowel obstruction. No drainable abscess or ascites. Colonic diverticulosis. Wall thickening of the sigmoid colon, likely chronic diverticular disease, correlate with age-appropriate colonoscopy results. Body wall: Unremarkable Pelvis: Mild bladder wall thickening, nonspecific again seen. Prostate bed post treatment changes. Bones: There are degenerative osseous changes. No aggressive appearing focal osseous abnormality. IMPRESSION: Left retroperitoneal and common iliac lymphadenopathy have decreased. Many small pulmonary nodules are stable. Large hiatal hernia with rotated stomach, without gastric distention. Other findings above. Dictated by: Chip Love M.D. on 09/02/2024 at 20:37 Approved by: Chip Love M.D. on 09/02/2024 at 20:46
[2024-09-01 11:46] LABS: Estimated Glomerular Filt Rate > 60 mL/min (>60)
== END ==
PROVIDERS: PCP Internal Medicine; Referring Provider Radiology Radiation Oncology; Visit Provider Radiology Radiation Oncology
DX: C61 Malignant neoplasm of prostate (principal); K76.9 Liver disease, unspecified; K57.90 Diverticulosis of intestine, part unspecified, without perforation or abscess without bleeding; R91.8 Other nonspecific abnormal finding of lung field; R91.1 Solitary pulmonary nodule; K44.9 Diaphragmatic hernia without obstruction or gangrene; I25.10 Atherosclerotic heart disease of native coronary artery without angina pectoris
CPT/HCPCS: 36415; 70491; 71260; 74177; 82565; Q9967

== ENCOUNTER → 2024-09-21 06:40 | Outpatient (CLI) | payer OTHER, SELFPAY ==
[2024-09-21 07:50] LABS: Add Manual Diff / Slide Review NO; Hematocrit 39.2 % (41-53); Hemoglobin 13.3 g/dL (13.5-17.5); Lymphocytes Absolute Auto 800 /uL (1100-4500); Mean Corpuscular HGB Conc 33.8 % (30-36); Mean Corpuscular Hemoglobin 32.4 PG (26-34); Mean Corpuscular Volume 96.0 fL (80-100); Platelet Count 269 X10^3/uL (150-400)
[2024-09-21 08:18] LABS: Alanine Aminotransferase 13 IU/L (<50); Albumin 3.8 g/dL (3.5-5.0); Albumin Globulin Ratio 1.5 (1.0-2.8); Alkaline Phosphatase 101 U/L (38-126); Blood Urea Nitrogen 16 mg/dL (9-20); Calcium 9.6 mg/dL (8.4-10.2); Carbon Dioxide 25 mmol/L (22-32); Chloride 107 mmol/L (98-107); Estimated Glomerular Filt Rate > 60 mL/min (>60); Globulin 2.6 g/dL (1.7-4.1); Glucose 105 mg/dL (70-99); Potassium 4.2 mmol/L (3.4-5.1); Sodium 140 mmol/L (137-145); Total Protein 6.4 g/dL (6.3-8.2)
[2024-09-21 09:08] LABS: HEMOLYSIS < 15 (0-50); Prostate Specific Antigen 0.863 ng/mL (0.10-4.00)
== END ==
PROVIDERS: PCP Internal Medicine; Referring Provider Radiology Radiation Oncology; Visit Provider Radiology Radiation Oncology
DX: C61 Malignant neoplasm of prostate (principal)
CPT/HCPCS: 36415; 80053; 84153; 85025

== ENCOUNTER → 2024-12-30 06:54 | Outpatient (CLI) | payer OTHER, SELFPAY ==
[2024-12-30 07:58] LABS: Add Manual Diff / Slide Review NO; Hematocrit 39.6 % (41-53); Hemoglobin 13.9 g/dL (13.5-17.5); Lymphocytes Absolute Auto 600 /uL (1100-4500); Mean Corpuscular HGB Conc 35.1 % (30-36); Mean Corpuscular Hemoglobin 34.1 PG (26-34); Mean Corpuscular Volume 97.2 fL (80-100); Platelet Count 195 X10^3/uL (150-400)
[2024-12-30 08:18] LABS: Alanine Aminotransferase 13 IU/L (<50); Albumin 4.0 g/dL (3.5-5.0); Albumin Globulin Ratio 1.5 (1.0-2.8); Alkaline Phosphatase 103 U/L (38-126); Blood Urea Nitrogen 19 mg/dL (9-20); Calcium 9.7 mg/dL (8.4-10.2); Carbon Dioxide 26 mmol/L (22-32); Chloride 106 mmol/L (98-107); Estimated Glomerular Filt Rate > 60 mL/min (>60); Globulin 2.6 g/dL (1.7-4.1); Glucose 107 mg/dL (70-99); HEMOLYSIS < 15 (0-50); Potassium 4.3 mmol/L (3.4-5.1); Sodium 140 mmol/L (137-145); Total Protein 6.6 g/dL (6.3-8.2)
[2024-12-30 08:48] LABS: Prostate Specific Antigen 0.377 ng/mL (0.10-4.00)
== END ==
PROVIDERS: PCP Internal Medicine
DX: C61 Malignant neoplasm of prostate (principal)
CPT/HCPCS: 36415; 80053; 84153; 85025